=== PATIENT | female | born 1990 | race African-American/Black ===

== ENCOUNTER 2017-09-20 15:50 | Emergency (ER) | payer MEDICAID, OTHER ==
[~2017-09-20] VITALS: Ht 167.6 cm; Wt 45.0 kg
[2017-09-20 15:53] VITALS: BP 135/92
[2017-09-20] MEDS ORDERED: IBUPROFEN 600MG TABLET PO ONE (16:30)
[2017-09-20] MEDS ORDERED: KETOROLAC 30MG/ML VIAL IM ONE (18:30)
== END 2017-09-20 20:01 | disposition home or self-care (01) ==
LOC: ER 15:50
DX: S42.301A Unspecified fracture of shaft of humerus, right arm, initial encounter for closed fracture (principal); F17.200 Nicotine dependence, unspecified, uncomplicated; W05.1XXA Fall from non-moving nonmotorized scooter, initial encounter; Y93.89 Activity, other specified; Y99.8 Other external cause status; Y92.89 Other specified places as the place of occurrence of the external cause; Z98.890 Other specified postprocedural states
CPT/HCPCS: 73030; 96372; 99284; J1885